=== PATIENT | male | born 1990 ===

== ENCOUNTER → 2017-05-12 | Emergency (ER) | payer OTHER ==
[~2017-05-12] VITALS: Ht 190.5 cm; Wt 77.1 kg
[~2017-05-12] MED LIST: LEVAQUIN500 MG PO
== END | disposition home or self-care (01) ==
LOC: ER 15:04
DX: N30.81 Other cystitis with hematuria (principal)

== ENCOUNTER 2020-09-24 11:47 | Emergency (ER) | payer OTHER ==
[~2020-09-24] VITALS: Ht 188 cm; Wt 86.2 kg
[2020-09-24] MEDS ORDERED: ZITHROMAX TRI-500 MG PO (15:55)
== END 2020-09-24 19:32 | disposition home or self-care (01) ==
LOC: ER 11:47
DX: B34.9 Viral infection, unspecified (principal); Z20.822 Contact with and (suspected) exposure to COVID-19

== ENCOUNTER 2021-03-06 14:25 | Outpatient (CLI) | payer OTHER ==
[~2021-03-06 14:25] MED LIST changes: +ZITHROMAX TRI-500 MG PO
== END 2021-03-06 14:45 | disposition home or self-care (01) ==
LOC: PPH VACUNA 14:25
PROVIDERS: ATTEND Emergency Medicine Pediatric Emergency Medicine
DX: Z23 Encounter for immunization (principal)

== ENCOUNTER 2022-03-16 | Outpatient (CLI) | payer OTHER | END 2022-03-16 15:53 | disposition home or self-care (01) | LOC: PPH VACUNA | PROVIDERS: ATTEND Emergency Medicine Pediatric Emergency Medicine | DX: Z23 Encounter for immunization (principal) ==

== ENCOUNTER 2022-12-17 13:00 | Outpatient (CLI) | payer OTHER | END 2022-12-17 13:10 | disposition home or self-care (01) | LOC: PPH VACUNA 13:00 | PROVIDERS: ATTEND Emergency Medicine Pediatric Emergency Medicine | DX: Z23 Encounter for immunization (principal) | CPT/HCPCS: 90686; G0008 ==